=== PATIENT | female | born 2000 | race Two or more races ===

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

== ENCOUNTER → 2019-09-17 | Outpatient (REF) | payer OTHER ==
[~2019-09-17] MED LIST changes: +ACET500T15 PO
[2019-09-17 13:23] LABS: BASO % 0.2 % (0.0-1.0); EOS # 0.2 10^3/uL (0.0-0.5); EOS % 2.2 % (0.0-3.0); HEMATOCRIT 37.7 % (36.0-47.0); HEMOGLOBIN 10.8 g/dl (12.0-15.5); LYMPH # 2.9 10^3/uL (1.5-5.0); LYMPH % 35.2 % (24.0-44.0); MEAN CORPUSCULAR HEMOGLOBIN 21.9 pg (27.0-33.0); MEAN CORPUSCULAR HGB CONC 28.6 g/dl (32.0-36.5); MEAN CORPUSCULAR VOLUME 76.3 fl (80.0-96.0); MONO # 0.7 10^3/uL (0.0-0.8); MONO % 8.7 % (0.0-5.0); NEUTROPHILS # 4.4 10^3/uL (1.5-8.5); NEUTROPHILS % 53.5 % (36.0-66.0); PLATELET COUNT, AUTOMATED 370 10^3/uL (150-450); RED BLOOD COUNT 4.94 10^6/uL (4.00-5.40); WHITE BLOOD COUNT 8.2 10^3/uL (4.0-10.0)
[2019-09-17 13:35] LABS: APPEARANCE, URINE HAZY (CLEAR); BACTERIA, URINE AUTO 1+ (NEGATIVE); BILIRUBIN, URINE AUTO NEGATIVE (NEGATIVE); BLOOD, URINE BLOOD NEGATIVE (NEGATIVE); COLOR, URINE YELLOW (YELLOW); GLUCOSE, URINE (UA) AUTO NEGATIVE (NEGATIVE); KETONE, URINE AUTO NEGATIVE (NEGATIVE); LEUKOCYTE ESTERASE, URINE AUTO NEGATIVE (NEGATIVE); MUCUS, URINE SMALL (NEGATIVE); NITRITE, URINE AUTO NEGATIVE (NEGATIVE); PROTEIN, URINE AUTO NEGATIVE (NEGATIVE); RBC, URINE AUTO 3 /HPF (0-3); SPECIFIC GRAVITY URINE AUTO 1.026 (1.002-1.035); SQUAMOUS EPITHELIAL CELL UR AU 10 /HPF (0-6); UROBILINOGEN, URINE AUTO 0.2 mg/dL (0.0-2.0); WBC, URINE AUTO 1 /HPF (0-3)
[2019-09-17 13:36] LABS: PERCENT SATURATION 5.5 % (13.2-45.0)
== END ==
LOC: M SFHCPLAZ 10:04
PROVIDERS: ATTEND Family Medicine
DX: D64.9 Anemia, unspecified (principal)

== ENCOUNTER → 2020-01-17 | Outpatient (CLI) | payer OTHER ==
--- NOTE | 2020-01-19 16:59 | SLEEPHOME ---
DATE OF PROCEDURE: 01/17/2020 Ordered by: Chencho Welsh PA-C Diagnostic home sleep testing was performed due to concern for the obstructive sleep apnea syndrome in this patient with a history of excessive somnolence and nonrestorative sleep. For testing, a nocturnal T3 respiratory monitoring device was used. Continuous record was made of pulse, oxygen saturation, airflow, chest, abdominal strain and body position. 9 hours and 59 minutes of data were reviewed. There were 5 hours and 57 minutes marked as time in bed. During the interval marked time in bed there were 44 respiratory events identified of 10 seconds in duration or greater for a respiratory event index of 7.4. The events were primarily obstructive, seven mixed and central apneas were seen. Baseline pulse rate 98, pulse rate ranged 80-119. Baseline saturation 98%. Saturations fell to 86% and testing was performed in both the supine and nonsupine positions. IMPRESSION Abnormal home sleep testing with repetitive respiratory events and oxygen desaturations to 86% with a respiratory event index of 7.4 is consistent with the obstructive sleep apnea syndrome. RECOMMENDATIONS The patient should be encouraged to undergo formal sleep evaluation.
== END ==
LOC: M SLEEP HO 10:56
PROVIDERS: ATTEND Physician Assistant
DX: R40.0 Somnolence (principal); R06.83 Snoring; G47.30 Sleep apnea, unspecified

== ENCOUNTER → 2020-01-31 | Outpatient (REF) | payer OTHER ==
[2020-01-31 17:48] LABS: CHOLESTEROL RISK RATIO 2.738 (<5); FREE T4 0.99 NG/DL (0.78-1.33); THYROID STIMULATING HORMONE 1.29 uIU/ML (0.463-3.98)
[2020-01-31 18:01] LABS: HEMOGLOBIN A1c 5.9 %
[2020-01-31 18:18] LABS: MALB URINE SIEMENS 13.9 MG/L; MAU/CREAT RATIO 6.4 MCG/MG (0.0-30.0)
== END ==
LOC: M SFHCPLAZ 14:52
PROVIDERS: ATTEND Family Medicine
DX: E66.01 Morbid (severe) obesity due to excess calories (principal)

== ENCOUNTER 2023-02-02 08:08 | Emergency (ER) | payer BC, OTHER ==
[~2023-02-02] VITALS: Ht 157.5 cm; Wt 127.5 kg
[2023-02-02] MEDS ORDERED: diphenhydrAMINE 50MG/ML VIAL IV ONE (08:40)
[2023-02-02] MEDS ORDERED: PROCHLORPERAZINE 10MG 2ML VIAL IV PRN (08:40)
[2023-02-02 09:33] LABS: BASO % 0.2 % (0.0-1.0); EOS # 0.1 10^3/uL (0.0-0.5); HEMATOCRIT 37.8 % (36.0-47.0); HEMOGLOBIN 12.4 g/dl (12.0-15.5); LYMPH # 2.1 10^3/uL (1.5-5.0); LYMPH % 23.1 % (24.0-44.0); MEAN CORPUSCULAR HEMOGLOBIN 28.1 pg (27.0-33.0); MEAN CORPUSCULAR HGB CONC 32.8 g/dl (32.0-36.5); MEAN CORPUSCULAR VOLUME 85.7 fl (80.0-96.0); MONO # 0.7 10^3/uL (0.0-0.8); MONO % 7.4 % (2.0-8.0); NEUTROPHILS # 6.3 10^3/uL (1.5-8.5); NEUTROPHILS % 67.8 % (36.0-66.0); PLATELET COUNT, AUTOMATED 308 10^3/uL (150-450); RED BLOOD COUNT 4.41 10^6/uL (4.00-5.40); WHITE BLOOD COUNT 9.2 10^3/uL (4.0-10.0)
[2023-02-02 09:55] LABS: BLOOD UREA NITROGEN 8 MG/DL (9-23); CALCIUM LEVEL 8.4 MG/DL (8.5-10.1); CARBON DIOXIDE LEVEL 26 MMOL/L (20-31); CHLORIDE LEVEL 109 MMOL/L (98-107); CREATININE FOR GFR 0.65 MG/DL (0.55-1.30); GLOMERULAR FILTRATION RATE > 60.0 (>60); GLUCOSE, FASTING 112 MG/DL (60-100); POTASSIUM SERUM 3.9 MMOL/L (3.5-5.1); SODIUM LEVEL 141 MMOL/L (136-145)
[2023-02-02 10:06] LABS: RSV AMPLIFICATION NEGATIVE (NEGATIVE)
[2023-02-02 10:07] LABS: HCG, SERUM QUALITATIVE NEGATIVE (NEGATIVE)
[2023-02-02 10:09] LABS: ERYTHROCYTE SEDIMENTATION RATE 60 mm/hr (0-20)
[2023-02-02 10:10] LABS: INR 0.96
[2023-02-02] MEDS ORDERED: KETOROLAC 30 MG/ML 1ML VIAL IV ONE (10:50)
[2023-02-02] MEDS ORDERED: methylPREDNISolone 125MG 2ML VIAL IV ONE (10:50)
[2023-02-02 12:52] VITALS: BP 129/73
[2023-02-03] MEDS ORDERED: MAXA10TA15 PO (21:55)
[2023-02-03] MEDS ORDERED: ONDA4TAB6 PO (21:55)
[2023-02-03] MEDS ORDERED: PERC5TAB12 PO (21:55)
== END 2023-02-02 12:57 | disposition home or self-care (01) ==
LOC: M ED 08:08
DX: R51.9 Headache, unspecified (principal)
CPT/HCPCS: 70450; 80048; 84702; 84703; 85025; 85610; 85652; 86140; 86618; 87631; 96374; 96375; 99284; J0780; J1200; J1885; J2930

== ENCOUNTER 2023-02-03 13:14 | Emergency (ER) | payer BC ==
[~2023-02-03] VITALS: Ht 157.5 cm; Wt 122.7 kg
[2023-02-03 14:22] VITALS: BP 153/92
[2023-02-03] MEDS ORDERED: ISOVUE-370 76% 100ML VIAL As Ordered ONE (14:23)
[2023-02-03 14:29] LABS: BASO % 0.2 % (0.0-1.0); EOS # 0.1 10^3/uL (0.0-0.5); EOS % 0.4 % (0.0-3.0); HEMATOCRIT 40.8 % (36.0-47.0); HEMOGLOBIN 13.5 g/dl (12.0-15.5); LYMPH # 3.7 10^3/uL (1.5-5.0); LYMPH % 26.4 % (24.0-44.0); MEAN CORPUSCULAR HEMOGLOBIN 28.4 pg (27.0-33.0); MEAN CORPUSCULAR HGB CONC 33.1 g/dl (32.0-36.5); MEAN CORPUSCULAR VOLUME 85.7 fl (80.0-96.0); MONO % 7.3 % (2.0-8.0); NEUTROPHILS # 9.1 10^3/uL (1.5-8.5); NEUTROPHILS % 65.2 % (36.0-66.0); PLATELET COUNT, AUTOMATED 355 10^3/uL (150-450); RED BLOOD COUNT 4.76 10^6/uL (4.00-5.40)
[2023-02-03 14:40] LABS: INR 0.94; PROTHROMBIN TIME 12.8 SECONDS (12.5-14.5)
[2023-02-03 14:41] LABS: PARTIAL THROMBOPLASTIN TIME 26.4 SECONDS (24.8-34.2)
[2023-02-03 15:00] VITALS: BP 153/92
[2023-02-03 15:23] LABS: RSV AMPLIFICATION NEGATIVE (NEGATIVE)
[2023-02-03 15:55] VITALS: BP 153/92
[2023-02-03] MEDS ORDERED: NS 1,000 ML IV ONE (16:25)
[2023-02-03] MEDS ORDERED: KETOROLAC 30 MG/ML 1ML VIAL IV ONE (16:25)
[2023-02-03] MEDS ORDERED: METOCLOPRAMIDE INJ 10MG/2ML VIAL IV ONE (16:25)
[2023-02-03] MEDS ORDERED: PROHANCE 279.3MG/ML 5ML VIAL As Ordered ONE (17:43)
[2023-02-03] MEDS ORDERED: PROHANCE 279.3MG/ML 15ML VIAL As Ordered ONE (17:43)
[2023-02-03] MEDS ORDERED: ACETAMINOPHEN 500 MG TAB PO ONE (18:25)
[2023-02-03] MEDS ORDERED: diphenhydrAMINE 50MG/ML VIAL IV ONE (18:25)
[2023-02-03] MEDS ORDERED: BUPIVACAINE HCL 0.5% 10ML VIAL SC ONE (18:25)
[2023-02-03] MEDS ORDERED: MAG SULF 1GM/100ML (MAG RUN) 1 GM in IV 1 EA IV ONE (18:25)
[2023-02-03] MEDS ORDERED: VALPROATE SOD INJ 500 MG in D5W 50 ML IV ONE (19:35)
[2023-02-03 21:41] VITALS: BP 128/86
[2023-02-03] MEDS ORDERED: RIZATRIPTAN MLT 10 MG TAB PO ONE (21:45)
[2023-02-03] MEDS ORDERED: ONDANSETRON 4MG ORAL DISINTEGRATING TAB PO ONE (21:45)
[2023-02-03] MEDS ORDERED: OXYCODONE/APAP 5MG/325MG(HOME DOSE PACK) PO ONE (21:45)
[2023-02-03] MEDS ORDERED: ONDA4TAB6 PO (21:55)
[2023-02-03] MEDS ORDERED: PERC5TAB12 PO (21:55)
[2023-02-03] MEDS ORDERED: MAXA10TA15 PO (21:55)
[2023-02-05 11:08] LABS: ANTINUCLEAR ANTIBODIES DIRECT Negative (Negative)
== END 2023-02-03 22:16 | disposition home or self-care (01) ==
LOC: M ED 13:14
DX: G43.909 Migraine, unspecified, not intractable, without status migrainosus (principal); H53.2 Diplopia; Z88.1 Allergy status to other antibiotic agents
CPT/HCPCS: 70450; 70496; 70498; 70553; 71045; 80047; 85025; 85610; 85652; 85730; 86038; 86140; 87631; 93005; 93041; 94760; 96365; 96375; 99285; A9576; J1100; J1200; J1885; J2765; J3475; Q9967; S0020

== ENCOUNTER 2023-02-05 14:28 | Emergency (ER) | payer BC, OTHER ==
[~2023-02-05] VITALS: Ht 157.5 cm; Wt 128.5 kg
[~2023-02-05 14:28] MED LIST changes: +MAXA10TA15 PO; +ONDA4TAB6 PO; +PERC5TAB12 PO
[2023-02-05] MEDS ORDERED: IBUP200C27 PO (14:36)
[2023-02-05] MEDS ORDERED: ETON68IM SC (14:37)
[2023-02-05] MEDS ORDERED: methylPREDNISolone 125MG 2ML VIAL IV ONE (17:35)
[2023-02-05 18:33] VITALS: BP 134/100
[2023-02-05] MEDS ORDERED: METHYLPREDNISOLONE IV ONE (19:00)
[2023-02-05] MEDS ORDERED: NS IV ONE (19:00)
== END 2023-02-05 19:52 | disposition home or self-care (01) ==
LOC: M ED 14:28
DX: H46.9 Unspecified optic neuritis (principal); H53.2 Diplopia; Z79.899 Other long term (current) drug therapy
CPT/HCPCS: 70544; 96365; 99283; J2930

== ENCOUNTER 2023-02-06 10:59 | Emergency (ER) | payer BC, OTHER ==
[~2023-02-06] VITALS: Ht 157.5 cm; Wt 127.3 kg
[~2023-02-06 10:59] MED LIST changes: +ETON68IM SC; +IBUP200C27 PO
[2023-02-06] MEDS ORDERED: methylPREDNISolone 1,000 MG, VIAL MATE ADAPTER 1 EACH in NS 250 ML IV ONE (12:40)
[2023-02-06 14:14] VITALS: BP 158/96
[2023-02-07] MEDS ORDERED: ACET250T2 PO (16:56)
[2023-02-07] MEDS ORDERED: RIZA10TA58 SL (20:43)
[2023-02-07] MEDS ORDERED: OXYC1TAB23 PO (20:43)
[2023-02-07] MEDS ORDERED: ONDA4TAB6 PO (20:43)
== END 2023-02-06 14:29 | disposition home or self-care (01) ==
LOC: M ED 10:59
DX: H46.9 Unspecified optic neuritis (principal); Z88.1 Allergy status to other antibiotic agents; Z79.899 Other long term (current) drug therapy
CPT/HCPCS: 96365; 99283; J2930

== ENCOUNTER 2023-02-07 11:40 | Emergency (ER) | payer BC, OTHER ==
[~2023-02-07] VITALS: Ht 157.5 cm; Wt 129.3 kg
[2023-02-07] MEDS ORDERED: methylPREDNISolone 125MG 2ML VIAL IV ONE (12:25)
[2023-02-07] MEDS ORDERED: methylPREDNISolone 1,000 MG, VIAL MATE ADAPTER 1 EACH in NS 250 ML IV ONE (13:00)
[2023-02-07] MEDS ORDERED: LIDOCAINE 1% MDV 20ML VIAL As Ordered ONE (14:32)
[2023-02-07 15:42] LABS: CSF TUBE# TP TUBE 2; TOTAL PROTEIN,CSF 36.4 MG/DL (15-45)
[2023-02-07 15:45] LABS: CSF TUBE# GLU TUBE 2
[2023-02-07 15:56] LABS: APPEARANCE, CSF CLEAR (CLEAR); COLOR, CSF COLORLESS (COLORLESS); CSF TUBE# CELL CNT TUBE 1
[2023-02-07] MEDS ORDERED: acetaZOLAMIDE 250MG TAB PO ONE (16:50)
[2023-02-07] MEDS ORDERED: ACET250T2 PO (16:56)
[2023-02-07 17:00] VITALS: BP 136/71
[2023-02-07 17:21] VITALS: TEMP 97.4; O2SAT 97
[2023-02-07] MEDS ORDERED: ONDA4TAB6 PO (20:43)
[2023-02-07] MEDS ORDERED: RIZA10TA58 SL (20:43)
[2023-02-07] MEDS ORDERED: OXYC1TAB23 PO (20:43)
== END 2023-02-07 17:41 | disposition home or self-care (01) ==
LOC: M ED 11:40
DX: A87.9 Viral meningitis, unspecified (principal); H46.9 Unspecified optic neuritis; H47.11 Papilledema associated with increased intracranial pressure; Z88.1 Allergy status to other antibiotic agents; Z79.899 Other long term (current) drug therapy
CPT/HCPCS: 62270; 82945; 83916; 84157; 87070; 87205; 87483; 89051; 96365; 99284; J2930

== ENCOUNTER 2023-02-07 18:38 | Inpatient (IN) | payer BC, OTHER, SELFPAY ==
[~2023-02-07] VITALS: Ht 157.5 cm; Wt 127.8 kg
[~2023-02-07 18:38] MED LIST changes: +ACET250T2 PO
[2023-02-07 20:00] VITALS: BP 137/96
[2023-02-07] MEDS ORDERED: ONDA4TAB6 PO (20:43)
[2023-02-07] MEDS ORDERED: OXYC1TAB23 PO (20:43)
[2023-02-07] MEDS ORDERED: RIZA10TA58 SL (20:43)
[2023-02-07] MEDS ORDERED: HOME MED LIST COMPLETE! XX SCH (21:50)
[2023-02-07] MEDS ORDERED: ONDANSETRON 4MG 2ML VIAL IV PRN (22:00)
[2023-02-07] MEDS ORDERED: ACETAMINOPHEN TAB 650MG DOSE (2X325MG) PO PRN (22:00)
[2023-02-07] MEDS: NS IV SCH (23:02)
[2023-02-07] MEDS: ACYCLOVIR IV SCH (23:02)
[2023-02-08] MEDS: NS 1,000 ML IV SCH ×3 (00:19→22:57)
[2023-02-08 02:33] VITALS: BP 118/79
[2023-02-08 05:30] VITALS: BP 123/79
[2023-02-08] MEDS: NS IV SCH ×3 (06:04→22:57)
[2023-02-08] MEDS: ACYCLOVIR IV SCH ×3 (06:04→22:57)
[2023-02-08 07:24] LABS: BASO % 0.1 % (0.0-1.0); HEMATOCRIT 40.4 % (36.0-47.0); LYMPH # 1.3 10^3/uL (1.5-5.0); LYMPH % 8.9 % (24.0-44.0); MEAN CORPUSCULAR HEMOGLOBIN 27.8 pg (27.0-33.0); MEAN CORPUSCULAR HGB CONC 32.2 g/dl (32.0-36.5); MEAN CORPUSCULAR VOLUME 86.3 fl (80.0-96.0); MONO % 6.7 % (2.0-8.0); NEUTROPHILS % 83.3 % (36.0-66.0); PLATELET COUNT, AUTOMATED 398 10^3/uL (150-450); RED BLOOD COUNT 4.68 10^6/uL (4.00-5.40); WHITE BLOOD COUNT 14.4 10^3/uL (4.0-10.0)
[2023-02-08 07:48] LABS: BLOOD UREA NITROGEN 16 MG/DL (9-23); CALCIUM LEVEL 8.9 MG/DL (8.5-10.1); CARBON DIOXIDE LEVEL 20 MMOL/L (20-31); CHLORIDE LEVEL 111 MMOL/L (98-107); CREATININE FOR GFR 0.66 MG/DL (0.55-1.30); GLOMERULAR FILTRATION RATE > 60.0 (>60); GLUCOSE, FASTING 127 MG/DL (60-100); SODIUM LEVEL 141 MMOL/L (136-145)
[2023-02-08 10:44] LABS: HIV 1&2 SCREEN CENTAUR NEGATIVE (NEGATIVE)
[2023-02-08] MEDS ORDERED: acetaZOLAMIDE 250MG TAB PO SCH ×2 (13:00→15:30)
[2023-02-08 14:00] VITALS: BP 142/90
[2023-02-08 21:00] VITALS: BP 147/99
[2023-02-09 05:20] VITALS: BP 140/95
[2023-02-09] MEDS: ACYCLOVIR IV SCH ×3 (06:17→22:00)
[2023-02-09] MEDS: NS IV SCH ×3 (06:17→22:00)
[2023-02-09 08:01] LABS: HEMATOCRIT 42.3 % (36.0-47.0); HEMOGLOBIN 13.5 g/dl (12.0-15.5); MEAN CORPUSCULAR HEMOGLOBIN 27.4 pg (27.0-33.0); MEAN CORPUSCULAR HGB CONC 31.9 g/dl (32.0-36.5); MEAN CORPUSCULAR VOLUME 85.8 fl (80.0-96.0); PLATELET COUNT, AUTOMATED 311 10^3/uL (150-450); RED BLOOD COUNT 4.93 10^6/uL (4.00-5.40); WHITE BLOOD COUNT 12.2 10^3/uL (4.0-10.0)
[2023-02-09 08:26] LABS: BLOOD UREA NITROGEN 17 MG/DL (9-23); CALCIUM LEVEL 8.3 MG/DL (8.5-10.1); CARBON DIOXIDE LEVEL 21 MMOL/L (20-31); CHLORIDE LEVEL 109 MMOL/L (98-107); CREATININE FOR GFR 0.85 MG/DL (0.55-1.30); GLOMERULAR FILTRATION RATE > 60.0 (>60); GLUCOSE, FASTING 86 MG/DL (60-100); PHOSPHORUS LEVEL 4.3 MG/DL (2.5-4.9); POTASSIUM SERUM 3.9 MMOL/L (3.5-5.1); SODIUM LEVEL 139 MMOL/L (136-145)
[2023-02-09] MEDS: NS 1,000 ML IV SCH ×2 (09:00→18:20)
[2023-02-09] MEDS: ENOXAPARIN 40MG/0.4ML SYRINGE (J1650 PER 10MG) SC SCH ×2 (09:00→21:00)
[2023-02-09] MEDS: acetaZOLAMIDE 250MG TAB PO SCH ×2 (09:03→21:59)
[2023-02-09 14:00] VITALS: BP 133/90
[2023-02-09 21:46] VITALS: BP 137/74
[2023-02-10] MEDS: NS 1,000 ML IV SCH (01:39)
[2023-02-10 06:00] VITALS: BP 130/91
[2023-02-10 06:04] LABS: HEMATOCRIT 41.6 % (36.0-47.0); HEMOGLOBIN 13.4 g/dl (12.0-15.5); MEAN CORPUSCULAR HEMOGLOBIN 27.7 pg (27.0-33.0); MEAN CORPUSCULAR HGB CONC 32.2 g/dl (32.0-36.5); MEAN CORPUSCULAR VOLUME 86.1 fl (80.0-96.0); PLATELET COUNT, AUTOMATED 323 10^3/uL (150-450); RED BLOOD COUNT 4.83 10^6/uL (4.00-5.40); WHITE BLOOD COUNT 14.8 10^3/uL (4.0-10.0)
[2023-02-10] MEDS: NS IV SCH ×3 (06:14→22:00)
[2023-02-10] MEDS: ACYCLOVIR IV SCH ×3 (06:14→22:00)
[2023-02-10 06:31] LABS: BLOOD UREA NITROGEN 16 MG/DL (9-23); CALCIUM LEVEL 8.6 MG/DL (8.5-10.1); CARBON DIOXIDE LEVEL 21 MMOL/L (20-31); CHLORIDE LEVEL 110 MMOL/L (98-107); CREATININE FOR GFR 0.83 MG/DL (0.55-1.30); GLOMERULAR FILTRATION RATE > 60.0 (>60); GLUCOSE, FASTING 116 MG/DL (60-100); PHOSPHORUS LEVEL 4.2 MG/DL (2.5-4.9); SODIUM LEVEL 137 MMOL/L (136-145)
[2023-02-10] MEDS: acetaZOLAMIDE 250MG TAB PO SCH ×2 (08:48→22:00)
[2023-02-10] MEDS: ENOXAPARIN 40MG/0.4ML SYRINGE (J1650 PER 10MG) SC SCH ×2 (08:48→21:00)
[2023-02-10 14:00] VITALS: BP 134/89
[2023-02-10] MEDS ORDERED: LIDOCAINE 1% MDV 20ML VIAL As Ordered ONE (14:38)
[2023-02-10 15:08] LABS: HSV TYPE I IgG SPECIFIC <0.91 index (0.00-0.90)
[2023-02-10] MEDS ORDERED: SODIUM CHLORIDE 0.9% INJ 10 ML SYR IV PRN (16:35)
[2023-02-10] MEDS: SODIUM CHLORIDE 0.9% INJ 10 ML SYR IV SCH (17:16)
[2023-02-10 21:14] VITALS: BP 130/90
[2023-02-11 06:00] VITALS: BP 127/67
[2023-02-11] MEDS: SODIUM CHLORIDE 0.9% INJ 10 ML SYR IV SCH (06:00)
[2023-02-11 06:14] LABS: HEMATOCRIT 43.2 % (36.0-47.0); HEMOGLOBIN 13.8 g/dl (12.0-15.5); MEAN CORPUSCULAR HEMOGLOBIN 27.5 pg (27.0-33.0); MEAN CORPUSCULAR HGB CONC 31.9 g/dl (32.0-36.5); MEAN CORPUSCULAR VOLUME 86.1 fl (80.0-96.0); PLATELET COUNT, AUTOMATED 349 10^3/uL (150-450); RED BLOOD COUNT 5.02 10^6/uL (4.00-5.40); WHITE BLOOD COUNT 17.5 10^3/uL (4.0-10.0)
[2023-02-11] MEDS: NS IV SCH (06:25)
[2023-02-11] MEDS: ACYCLOVIR IV SCH (06:25)
[2023-02-11 06:45] LABS: BLOOD UREA NITROGEN 12 MG/DL (9-23); CALCIUM LEVEL 8.5 MG/DL (8.5-10.1); CARBON DIOXIDE LEVEL 20 MMOL/L (20-31); CHLORIDE LEVEL 109 MMOL/L (98-107); GLOMERULAR FILTRATION RATE > 60.0 (>60); GLUCOSE, FASTING 118 MG/DL (60-100); MAGNESIUM LEVEL 2.2 MG/DL (1.8-2.4); POTASSIUM SERUM 4.5 MMOL/L (3.5-5.1); SODIUM LEVEL 140 MMOL/L (136-145)
[2023-02-11] MEDS: ENOXAPARIN 40MG/0.4ML SYRINGE (J1650 PER 10MG) SC SCH (08:42)
[2023-02-11] MEDS: acetaZOLAMIDE 250MG TAB PO SCH (08:42)
[2023-02-11] MEDS ORDERED: ACET250T2 PO (11:59)
[2023-02-11] MEDS ORDERED: ACET1TAB55 PO (11:59)
[2023-02-11] MEDS ORDERED: [UNRECOGNIZED DRUG - CODE] IV (11:59)
== END 2023-02-11 13:29 | disposition home health service (06) | DRG 50 ==
LOC: M MSPAV 19:40
PROVIDERS: ADMIT Internal Medicine; ATTEND Student in an Organized Health Care Education/Training Program
PROC: 02HV33Z Insertion of Infusion Device into Superior Vena Cava, Percutaneous Approach (ICD-10-PCS; principal; 2023-02-10 15:00)
DX: B00.4 Herpesviral encephalitis (principal); H47.10 Unspecified papilledema; E66.01 Morbid (severe) obesity due to excess calories; Z68.43 Body mass index [BMI] 50.0-59.9, adult; Z79.899 Other long term (current) drug therapy; Z88.1 Allergy status to other antibiotic agents; Z88.8 Allergy status to other drugs, medicaments and biological substances; G93.2 Benign intracranial hypertension

== ENCOUNTER → 2023-02-17 | Outpatient (REF) | payer BC ==
[~2023-02-17] MED LIST changes: +ACET1TAB55 PO; +OXYC1TAB23 PO; +RIZA10TA58 SL; +[UNRECOGNIZED DRUG - CODE] IV
[2023-02-17 14:41] LABS: HEMATOCRIT 39.1 % (36.0-47.0); HEMOGLOBIN 12.5 g/dl (12.0-15.5); MEAN CORPUSCULAR HEMOGLOBIN 27.5 pg (27.0-33.0); MEAN CORPUSCULAR VOLUME 86.1 fl (80.0-96.0); PLATELET COUNT, AUTOMATED 314 10^3/uL (150-450); RED BLOOD COUNT 4.54 10^6/uL (4.00-5.40); WHITE BLOOD COUNT 12.4 10^3/uL (4.0-10.0)
== END ==
LOC: M LAB REF 13:14
PROVIDERS: ATTEND Student in an Organized Health Care Education/Training Program
DX: B00.4 Herpesviral encephalitis (principal)

== ENCOUNTER → 2023-02-20 | Outpatient (CLI) | payer BC ==
[2023-02-20 14:55] LABS: BASO % 0.3 % (0.0-1.0); EOS # 0.2 10^3/uL (0.0-0.5); EOS % 1.8 % (0.0-3.0); HEMATOCRIT 41.4 % (36.0-47.0); HEMOGLOBIN 13.2 g/dl (12.0-15.5); LYMPH # 3.2 10^3/uL (1.5-5.0); MEAN CORPUSCULAR HEMOGLOBIN 27.5 pg (27.0-33.0); MEAN CORPUSCULAR HGB CONC 31.9 g/dl (32.0-36.5); MEAN CORPUSCULAR VOLUME 86.3 fl (80.0-96.0); MONO # 0.7 10^3/uL (0.0-0.8); MONO % 6.2 % (2.0-8.0); NEUTROPHILS # 6.5 10^3/uL (1.5-8.5); PLATELET COUNT, AUTOMATED 304 10^3/uL (150-450); WHITE BLOOD COUNT 10.7 10^3/uL (4.0-10.0)
[2023-02-20 15:14] LABS: HEMOGLOBIN A1c 5.7 % (4.0-6.0)
[2023-02-20 15:21] LABS: ALBUMIN 3.5 G/DL (3.2-5.2); ALKALINE PHOSPHATASE 75 U/L (46-116); ALT/SGPT 59 U/L (7.0-40); AST/SGOT 20 U/L (<34); BILIRUBIN,TOTAL 0.6 MG/DL (0.3-1.2); BLOOD UREA NITROGEN 9 MG/DL (9-23); CALCIUM LEVEL 8.6 MG/DL (8.5-10.1); CARBON DIOXIDE LEVEL 22 MMOL/L (20-31); CHLORIDE LEVEL 111 MMOL/L (98-107); CHOLESTEROL LEVEL 145 MG/DL (<200); CREATININE FOR GFR 0.73 MG/DL (0.55-1.30); CREATININE, URINE 91.6 MG/DL; GLOMERULAR FILTRATION RATE > 60.0 (>60); GLUCOSE, FASTING 79 MG/DL (60-100); HDL CHOLESTEROL 43.9 MG/DL (>40); LDL CHOLESTEROL 79.1 MG/DL (<100); MALB URINE SIEMENS < 3.0 MG/L; MAU/CREAT RATIO 3.2 MCG/MG (0.0-30.0); NON-HDL-C 101.1 MG/DL; POTASSIUM SERUM 3.9 MMOL/L (3.5-5.1); SODIUM LEVEL 143 MMOL/L (136-145); TOTAL PROTEIN 6.8 G/DL (5.7-8.2); TRIGLYCERIDES LEVEL 110 MG/DL (<150)
== END ==
LOC: M PLALAB 11:28
PROVIDERS: ATTEND Student in an Organized Health Care Education/Training Program
DX: Z79.899 Other long term (current) drug therapy (principal); Z13.220 Encounter for screening for lipoid disorders; Z13.1 Encounter for screening for diabetes mellitus; Z86.19 Personal history of other infectious and parasitic diseases; R03.0 Elevated blood-pressure reading, without diagnosis of hypertension

== ENCOUNTER → 2023-11-13 | Outpatient (REF) | payer BC ==
[~2023-11-13] MED LIST changes: -MAXA10TA15 PO; +RIZA10TA66 PO
[2023-11-13 12:29] LABS: APPEARANCE, URINE CLOUDY (CLEAR); BACTERIA, URINE AUTO 1+ (NEGATIVE); BILIRUBIN, URINE AUTO NEGATIVE (NEGATIVE); BLOOD, URINE BLOOD NEGATIVE (NEGATIVE); COLOR, URINE YELLOW (YELLOW); GLUCOSE, URINE (UA) AUTO NEGATIVE (NEGATIVE); KETONE, URINE AUTO NEGATIVE (NEGATIVE); LEUKOCYTE ESTERASE, URINE AUTO 2+ (NEGATIVE); MUCUS, URINE SMALL (NEGATIVE); NITRITE, URINE AUTO NEGATIVE (NEGATIVE); PROTEIN, URINE AUTO 1+ mg/dL (NEGATIVE); RBC, URINE AUTO 6 /HPF (0-3); SPECIFIC GRAVITY URINE AUTO 1.017 (1.002-1.035); SQUAMOUS EPITHELIAL CELL UR AU 5 /HPF (0-6); TRANSITIONAL EPITHELIAL AUTO 1 /HPF; UROBILINOGEN, URINE AUTO 0.2 mg/dL (0.0-2.0); WBC, URINE AUTO TNTC /HPF (0-3)
== END ==
LOC: M LAB REF 11:31
PROVIDERS: ATTEND Physician Assistant Medical
DX: N39.0 Urinary tract infection, site not specified (principal)